=== PATIENT | male | born 1960 | race African-American/Black ===

== ENCOUNTER 2018-04-11 13:31 | Emergency (ER) | payer SELFPAY ==
[~2018-04-11] VITALS: Ht 190.5 cm; Wt 92.1 kg
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
[2018-04-11] MEDS ORDERED: SILVER SULFADIAZINE CREAM 25 GM TUBE ONE (13:48)
[2018-04-11] MEDS ORDERED: TDAP [DIPH/PERTUSSIS/TET] 0.5 ML VIAL IM ONE ×2 (13:49→14:00)
--- NOTE | 2018-04-11 13:53 | NUR ---
Medicated as ordered.
[2018-04-11] MEDS ORDERED: SILVER SULFADIAZINE CREAM 25 GM TUBE TP ONE (14:00)
--- NOTE | 2018-04-11 14:05 | NUR ---
WOUND CARE DONE, PERFORMED BY JOSE COYLE
--- NOTE | 2018-04-11 14:10 | NUR ---
Patient discharged to home in stable condition. Written and verbal after care instructions given. Patient verbalizes understanding of instruction.
[2018-04-11 14:11] VITALS: BP 135/78
== END 2018-04-11 14:11 | disposition home or self-care (01) ==
LOC: ER 13:35
DX: T24.202A Burn of second degree of unspecified site of left lower limb, except ankle and foot, initial encounter (principal); T31.0 Burns involving less than 10% of body surface; X08.8XXA Exposure to other specified smoke, fire and flames, initial encounter; Y93.89 Activity, other specified; Y92.89 Other specified places as the place of occurrence of the external cause; Y99.0 Civilian activity done for income or pay
CPT/HCPCS: 90715; A4606; A6403; Z7610